=== PATIENT | female | born 1955 | race Two or more races ===

== ENCOUNTER 2024-04-02 12:32 | Emergency (ER) | payer OTHER ==
[~2024-04-02] VITALS: Ht 157.5 cm; Wt 76.2 kg
[2024-04-02] MEDS ORDERED: CLARITIN5 MG/5 ML PO (13:15)
[2024-04-02] MEDS ORDERED: KETOROLAC TROMETHAMINE 60 MG VIAL IM ONE ×2 (15:37→15:45)
== END 2024-04-02 15:55 | disposition home or self-care (01) ==
LOC: ER 12:34
DX: S99.822A Other specified injuries of left foot, initial encounter (principal); X58.XXXA Exposure to other specified factors, initial encounter; Y93.89 Activity, other specified; Y92.89 Other specified places as the place of occurrence of the external cause; Y99.8 Other external cause status
CPT/HCPCS: 96372; 99282; J1885